=== PATIENT | female | born 1955 | race Caucasian/White ===

== ENCOUNTER → 2019-05-25 | Outpatient (CLI) | payer BC ==
[~2019-05-25] MED LIST: ASPI81CH PO; ESOM20 PO; FISH1000 PO; Flonase 0.05% N16 GM; GLUCOSAMINE CH1 EAC3 PO; HYDCHL25 PO; Klor-Con 1010 MEQ PO; LEVSOD88 PO; LISI5 PO; METF500 PO; METR70GEL VAG; Multiple Vitam1 EAC1 PO; Omega 3 1,0001 EACH PO; Omeprazole20 M1 PO; SIMV40 PO; SLOW FE142 MG PO
== END | disposition home or self-care (01) ==
LOC: LAB SHORT 14:47 → PLD 14:47
DX: L30.8 Other specified dermatitis (principal)
CPT/HCPCS: 88305; 88312